=== PATIENT | male | born 1960 | race Hispanic/Latino ===

== ENCOUNTER 2024-07-10 12:43 | Emergency (ER) | payer OTHER ==
[~2024-07-10] VITALS: Ht 185.4 cm; Wt 122.5 kg
[2024-07-10] MEDS: 0.9%NACL 1000ML 1,000 ML IV ONE (14:16)
[2024-07-10 14:17] LABS: APPEARANCE,URINE CLEAR (CLEAR); BILIRUBIN,URINE NEGATIVE (NEGATIVE); COLOR,URINE LIGHT-YELLOW (YELLOW); GLUCOSE, URINE (UA) >=1000 mg/dL (NEGATIVE); KETONES,URINE NEGATIVE (NEGATIVE); LEUKOCYTE ESTERASE ,URINE NEGATIVE Leu/uL (NEGATIVE); NITRATE,URINE NEGATIVE (NEGATIVE); OCCULT BLOOD,URINE NEGATIVE (NEGATIVE); PH,URINE 5.5 (5.0-8.0); PROTEIN,URINE NEGATIVE (NEGATIVE); UROBILINOGEN,URINE 0.2 mg/dL (0.2-1.0)
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
[2024-07-10 14:35] LABS: BASOPHILS # (AUTO) 0.03 K/uL (0.00-0.20); BASOPHILS % (AUTO) 0.6 % (0.0-5.0); EOSINOPHILS % (AUTO) 3.8 % (0.0-8.0); HEMATOCRIT 48.1 % (42-54); IMMATURE GRANULOCYTE ABSOLUTE 0.01 K/uL (0-1); LYMPHOCYTES # (AUTO) 2.3 K/uL (1.0-4.8); LYMPHOCYTES % (AUTO) 42.9 % (21.0-51.0); MEAN CORPUSCULAR HEMOGLOBIN 29.3 pg (27.0-33.0); MEAN CORPUSCULAR VOLUME 91.6 fL (79-99); MONOCYTES # (AUTO) 0.4 K/uL (0.1-1.0); MONOCYTES % (AUTO) 8.1 % (3.0-13.0); NEUTROPHILS # (AUTO) 2.4 K/uL (1.8-7.7); NEUTROPHILS % (AUTO) 44.4 % (40.0-77.0); PLATELET COUNT (AUTO) 141 K/uL (130-400); RED BLOOD CELL COUNT(AUTO) 5.25 MIL/uL (4.50-6.20); RED CELL DISTRIBUTION WIDTH 13.8 % (11.0-15.5); WHITE BLOOD COUNT (AUTO) 5.3 K/uL (4.8-10.8)
[2024-07-10 14:42] LABS: ADD UA MICROSCOPIC YES
[2024-07-10 14:47] LABS: SQUAMOUS EPITHELIAL CELL,UR RARE /HPF (0-2)
[2024-07-10 14:48] LABS: POTASSIUM 4.4 mmol/L (3.5-5.1)
[2024-07-10 15:18] VITALS: BP 152/68; PULSE 73; RESP 16; TEMP 98.2; O2SAT 96
--- NOTE | 2024-07-10 15:20 | NUR ---
PT STABLE NO DISTRESS, VITALS WNL NO C/O PAIN, IV REMOVED PT GIVEN INSTRUCTIONS FOR HOME VERBALIZED UNDERSTANDING.
== END 2024-07-10 15:22 | disposition home or self-care (01) ==
LOC: EDH 12:43
DX: E11.65 Type 2 diabetes mellitus with hyperglycemia (principal); E78.00 Pure hypercholesterolemia, unspecified; I10 Essential (primary) hypertension
CPT/HCPCS: 99283; 80048; 85025; 82948; 82010; 81001; 36415; J7030; 96360